=== PATIENT | male | born 1980 | race Caucasian/White ===

== ENCOUNTER 2017-09-06 19:03 | Emergency (ER) | payer MEDICAID ==
[2017-09-06] MEDS ORDERED: FLUORESCEIN SOD/BENOXINATE HCL 20 DROPS/ML OPHT.BTL ONE (19:20)
[2017-09-06 19:27] VITALS: BP 153/86
[2017-09-06] MEDS ORDERED: IBUPROFEN 600 MG TAB PO ONE (19:38)
[2017-09-06] MEDS ORDERED: ACETAMINOPHEN 325 MG TAB PO ONE (19:38)
--- NOTE | 2017-09-06 19:42 | EDPHY ---
H & P Time Seen by Provider: 09/06/17 19:27 HPI/ROS: This patient developed right eye redness and discomfort that was initially mild scratching discomfort yesterday afternoon but it has become 6/10 pain this evening slightly more sharp in nature. He has increased watering from the affected eye as well. He has no change in his vision and no left eye symptoms. Denies any other associated HEENT symptoms. His mother brought him in by private vehicle for further evaluation. ROS: No fevers or other constitutional symptoms HEENT: No URI symptoms. No history of foreign bodies to the eye or trauma to the eye. He does not were contacts. Integumentary: No skin lesions in his face. Neuro: No headache. No vision changes. No focal neuro symptoms. 7 point ROS is otherwise negative. Past Medical/Surgical History: Otherwise healthy Smoking Status: Heavy smoker Physical Exam: Physical Exam Vital signs are normal. General: No acute distress HEENT: Atraumatic. Eyes: Pupils equal and react to light. Extraocular motions are intact. Patient has conjunctival injection of the right eye. On slit-lamp exam after topical anesthesia in floor seen the patient has multiple small punctate lesions to the cornea and conjunctiva. No sellar flare in the anterior chamber. Lids and lashes are normal. Left eye exam is normal. Visual acuity is normal right eye, both eyes and left eye Lungs: No respiratory distress. Cardiac: Brisk capillary refill is intact throughout. Skin: No rash or pallor. Neuro: Alert with no sensorimotor deficits. Initial differential diagnosis: Bacterial versus viral Keratitis, conjunctivitis, chemical conjunctivitis Constitutional: Initial Vital Signs Temperature (C) 37.0 C 09/06/17 19:23 Heart Rate 76 09/06/17 19:23 Respiratory Rate 18 09/06/17 19:23 Blood Pressure 153/86 H 09/06/17 19:23 O2 Sat (%) 95 09/06/17 19:23 O2 Delivery Mode Room Air Allergies/Adverse Reactions: No Known Allergies Allergy (Verified 09/06/17 19:27) Home Medications: Medication Instructions Recorded NO HOME MEDS 09/09/09 Ofloxacin 0.3% [Ocuflox 0.3% (RX)] 2 drops EACHEYE Q1 #1 btl 09/06/17 traMADol [Ultram 50 mg (*)] 50 - 100 mg PO Q4 PRN #20 tab 09/06/17 MDM/Departure - MDM Medications Given: Discontinued Medications Acetaminophen (Tylenol) 975 mg PO EDNOW ONE Stop: 09/06/17 19:39 Last Admin: 09/06/17 19:50 Dose: 975 mg Fluorescein Sodium/Benoxinate HCl (Flurox) 2 drops OP EDNOW ONE Stop: 09/06/17 19:53 Last Admin: 09/06/17 19:54 Dose: 2 drop Ibuprofen (Motrin) 600 mg PO EDNOW ONE Stop: 09/06/17 19:39 Last Admin: 09/06/17 19:50 Dose: 600 mg ED Course/Re-evaluation: Ibuprofen Tylenol p.o. For discomfort. Patient had resolution of his pain with topical anesthesia. Discussion: Patient with superficial keratitis the conjunctivitis is likely viral but will cover bacterial possibility with Ocuflox with plan for close ophthalmology follow-up. I counseled patient regarding this. - Depart Disposition: Home, Routine, Self-Care Clinical Impression: Superficial keratitis with conjunctivitis Qualifiers: Laterality: right Qualified Code(s): H16.201 - Unspecified keratoconjunctivitis , right eye Condition: Good Instructions: Keratitis (ED), Conjunctivitis (ED) Additional Instructions: Diagnosis: Conjunctivitis with superficial keratitis Plan: Wash hands frequently Antibiotic drops as prescribed No work tomorrow. Ibuprofen Tylenol for pain if needed Tramadol if needed for pain that prevents sleep. No driving, alcohol or come tramadol Call phytopathology teacher listed below to arrange follow-up appointment for sometime within the next 2-5 days for a recheck. Return for any significant worsening despite the treatment plan Stand Alone Forms: Work Excuse Prescriptions: Ofloxacin 0.3% [Ocuflox 0.3% (RX)] 2 drops EACHEYE Q1 #1 btl traMADol [Ultram 50 mg (*)] 50 - 100 mg PO Q4 PRN #20 tab PRN Reason: breakthrough pain Referrals: NONE *PRIMARY CARE P,. [Primary Care Provider] - As per Instructions Kim Jaffe MD [Medical Doctor] - As per Instructions
[2017-09-06] MEDS ORDERED: FLUORESCEIN SOD/BENOXINATE HCL 20 DROPS/ML OPHT.BTL OP ONE (19:52)
== END 2017-09-06 20:07 | disposition home or self-care (01) ==
LOC: CED 19:03
DX: H16.201 Unspecified keratoconjunctivitis, right eye (principal); F17.200 Nicotine dependence, unspecified, uncomplicated

== ENCOUNTER 2017-11-27 22:05 | Emergency (ER) | payer MEDICAID ==
[2017-11-27 22:13] VITALS: BP 135/88
[2017-11-27] MEDS ORDERED: ERYTHROMYCIN 2% GEL TP ONE (22:31)
--- NOTE | 2017-11-27 22:34 | EDPHY ---
H & P Time Seen by Provider: 11/27/17 22:21 HPI/ROS: This patient complains of a lump to his right upper eyelid, onset 6:00 p.m. Mildly achy and burning in nature. He has never had this occur to him before. He has no associated ocular symptoms. He reports some mild discomfort associated with this described above. He notes no exacerbating factors. He came in by private vehicle accompanied by his mother. ROS: Constitutional: No fevers. HEENT: No other facial lesions or complaints. No trauma to the face. Neuro: No complaints new line 5 point ROS is otherwise negative Past Medical/Surgical History: Otherwise healthy Smoking Status: Heavy smoker Physical Exam: Physical Exam Vital signs are normal. General: No acute distress HEENT: Atraumatic. Eyes: Pupils equal and react to light. Extraocular motions are intact. There is no conjunctival injection. On slit-lamp exam appreciate no corneal deficits. No foreign bodies are present. No hyphema, sellar flare. The patient has an isolated area of swelling to the upper eyelid T eye lash margin is a few mm in size with no significant surrounding edema fluctuance or warmth to touch. He is mildly tender at the area of swelling. Lungs: No respiratory distress. Cardiac: Brisk capillary refill is intact throughout. Skin: No rash or pallor. Neuro: Alert and oriented x3 with no sensorimotor deficits. Initial differential diagnosis: Meibobian Cyst/Chalazion, blepharitis, Constitutional: Initial Vital Signs Temperature (C) 37.0 C 11/27/17 22:09 Heart Rate 86 11/27/17 22:09 Respiratory Rate 18 11/27/17 22:09 Blood Pressure 135/88 H 11/27/17 22:09 O2 Sat (%) 96 11/27/17 22:09 O2 Delivery Mode Room Air Allergies/Adverse Reactions: No Known Allergies Allergy (Verified 09/06/17 19:27) Home Medications: Medication Instructions Recorded NO HOME MEDS 09/09/09 Ofloxacin 0.3% [Ocuflox 0.3% (RX)] 2 drops EACHEYE Q1 #1 btl 09/06/17 traMADol [Ultram 50 mg (*)] 50 - 100 mg PO Q4 PRN #20 tab 09/06/17 Doxycycline Hyclate [Vibramycin 100 mg PO BID #20 cap 11/27/17 100 MG (*)] MDM/Departure - MDM Medications Given: Discontinued Medications Erythromycin (Erythromycin 2% Gel) 1 alec TP EDNOW ONE Stop: 11/27/17 22:32 Last Admin: 11/27/17 22:44 Dose: Not Given Erythromycin (Erythromycin 0.5%) 1 alec EACHEYE ONCE ONE Stop: 11/27/17 22:43 Last Admin: 11/27/17 22:43 Dose: 1 alec ED Course/Re-evaluation: Discussion: Findings are most consistent with chalazion/Meibobian cyst. I counseled patient regarding this. He is treated with erythromycin ointment with plan to continue that warm packs. He has a doxycycline script as a backup plan if he is not improving with the erythromycin. - Depart Disposition: Home, Routine, Self-Care Clinical Impression: Meibomian cyst Qualifiers: Laterality: right Eyelid: upper Qualified Code(s): H00.11 - Chalazion right upper eyelid Clinical Impression: (Ruled Out): Dacrocystitis Condition: Good Instructions: Erythromycin (Into the eye), Chalazion (ED) Additional Instructions: Diagnosis: Meibobian cyst of eyelid Plan: Apply warm packs to 3 times a day Erythromycin ointment If not improving with this over the next 2-3 days then add doxycycline antibiotic Follow up with [facility] s[facility] stone is still not improving with treatment plan Return for any significant worsening despite treatment plan. Prescriptions: Doxycycline Hyclate [Vibramycin 100 MG (*)] 100 mg PO BID #20 cap Referrals: Sukhjinder Alexandra MD [Medical Doctor] - As per Instructions
[2017-11-27] MEDS ORDERED: ERYTHROMYCIN 0.5% 1 GM OPHT.OINT ONE (22:40)
[2017-11-27] MEDS ORDERED: ERYTHROMYCIN 0.5% 1 GM OPHT.OINT EACHEYE ONE (22:42)
== END 2017-11-27 22:45 | disposition home or self-care (01) ==
LOC: CED 22:05
DX: H00.11 Chalazion right upper eyelid (principal); F17.200 Nicotine dependence, unspecified, uncomplicated